=== PATIENT | male | born 1970 | race Two or more races ===

== ENCOUNTER 2017-02-21 08:26 | Outpatient (CLI) | payer SELFPAY | END 2017-02-21 23:59 | disposition home or self-care (01) | LOC: WOU 08:26 | PROVIDERS: ATTEND Podiatrist Foot & Ankle Surgery | DX: E11.621 Type 2 diabetes mellitus with foot ulcer (principal); L97.511 Non-pressure chronic ulcer of other part of right foot limited to breakdown of skin; E11.65 Type 2 diabetes mellitus with hyperglycemia; E78.5 Hyperlipidemia, unspecified; I10 Essential (primary) hypertension; Z79.82 Long term (current) use of aspirin; Z79.4 Long term (current) use of insulin; Q66.89 Other specified congenital deformities of feet; Z83.3 Family history of diabetes mellitus; Z82.49 Family history of ischemic heart disease and other diseases of the circulatory system | CPT/HCPCS: 11042; A6402 ==